=== PATIENT | female | born 1985 | race Caucasian/White ===

== ENCOUNTER → 2017-04-07 | Outpatient (REF) | payer OTHER ==
[~2017-04-07] MED LIST: COLA100C3 PO; IBUP80TA PO; PRENATAL VITAMIN PO; TYLE325T5 PO
== END ==
LOC: M LAB REF 13:09
PROVIDERS: ATTEND Advanced Practice Midwife
DX: Z12.4 Encounter for screening for malignant neoplasm of cervix (principal)

== ENCOUNTER → 2017-05-05 | Outpatient (REF) | payer OTHER ==
[~2017-05-05] MED LIST changes: -COLA100C3 PO; +COLA100C5 PO
== END ==
LOC: M LAB REF 17:27
PROVIDERS: ATTEND Obstetrics & Gynecology
DX: R87.610 Atypical squamous cells of undetermined significance on cytologic smear of cervix (ASC-US) (principal)

== ENCOUNTER → 2019-02-17 | Outpatient (REF) | payer BC | LOC: M LAB LCGH 14:33 | PROVIDERS: ATTEND Physician Assistant | DX: B35.1 Tinea unguium (principal) ==

== ENCOUNTER → 2022-04-18 | Outpatient (REF) | payer BC, OTHER | LOC: M SFHCDERM 16:35 | PROVIDERS: ATTEND Physician Assistant | DX: D48.9 Neoplasm of uncertain behavior, unspecified (principal); I78.1 Nevus, non-neoplastic ==